=== PATIENT | female | born 1945 | race Caucasian/White ===

== ENCOUNTER 2017-05-09 08:25 | Day surgery (SDC) ==
[2017-05-09] MEDS ORDERED: LIDOCAINE 1% 20 ML MDV ID STA (09:45)
[2017-05-09] MEDS ORDERED: DIPRIVAN 20 ML VIAL IVP ONE (10:35)
[2017-05-09] MEDS ORDERED: VERSED ONE (10:35)
[2017-05-09 15:16] VITALS: BP 112/67
--- NOTE | 2017-05-10 09:20 | OP ---
PROCEDURE: COLONOSCOPY TO THE CECUM. ENDOSCOPIST: Freddy PATEL M.D. INDICATION: HISTORY OF POLYPS. INSTRUMENT: [employer]-[facility]. MEDICATION: PER ANESTHESIA. PROCEDURE: The patient was positioned for colonoscopy. The digital rectal exam was negative. The colonoscope was inserted through the anus and advanced to the cecum. The cecum was identified using the ileocecal valve and the appendiceal orifice as landmarks. The scope was slowly withdrawn through a tortuous colon. No evidence for inflammatory change, polyp or mass. She does have hemorrhoids on retroflex exam. No other abnormalities are noted. Withdrawal time 12 minutes. PLAN: 1. Repeat her exam in 5 years. CC: DR. PHILIPPE MARCIAL
== END 2017-05-09 12:10 | disposition home or self-care (01) ==
LOC: SURG 08:25
PROVIDERS: ATTEND Internal Medicine Gastroenterology
DX: Z09 Encounter for follow-up examination after completed treatment for conditions other than malignant neoplasm (principal); Z86.010 Personal history of colon polyps; K56.2 Volvulus; K64.9 Unspecified hemorrhoids

== ENCOUNTER 2017-08-23 13:40 | Outpatient (CLI) ==
--- NOTE | 2017-08-23 14:26 | US ---
EXAM: Bilateral lower extremity venous doppler. HISTORY: Bilateral lower extremity pain and swelling. COMPARISON: None available. TECHNIQUE: Multiple grayscale and color doppler images were obtained. FINDINGS: There is normal flow, compressibility and augmentation of flow within the right and left c ommon femoral, greater saphenous, profunda, femoral, popliteal, posterior tibial, anterior tibial and peroneal veins. IMPRESSION: No evidence for right or left lower extremity deep vein thrombosis at the levels examined.
== END 2017-08-23 13:41 | disposition home or self-care (01) ==
LOC: RAD 13:40
PROVIDERS: ATTEND Family Medicine
DX: R60.0 Localized edema (principal); I87.2 Venous insufficiency (chronic) (peripheral)

== ENCOUNTER 2017-09-06 06:29 | Outpatient (CLI) ==
--- NOTE | 2017-09-06 10:07 | ECHO2D ---
Date of Exam: 09/06/17 Ordering Physician: DR. JONAS PAEZ Room #: OP Reason for Echo: EDEMA, DYSPNEA, SOB M-Mode Normal Adult Results LV Dimensions Normal Adult Results AoV Opening excursions >1.6 >1.6 LVEDD-base- 3.5-5.8 3.6 Ao root dimensions 2.0-3.7 3.3 LVESD-base- 3.1-4.6 L. Atrium dimensions 1.9-3.8 3.1 Post. Wall thickness 0.8-1.1 1.1 IV septum (thickness) 0.7-1.2 1.1 Post. Wall excursion 0.72-1.3 NORMAL Septal motion NORMAL Systolic motion R. Ventricular cavity 1.5-2.0 NORMAL LVEF 60% 59% Paradoxical septal wall motion NORMAL 2-D : 2-D M Mode Echocardiogram was performed using apical four chamber and left parasternal long and short axis views. Mitral Valve Prolapse noted long parasternal long axis and apical four chamber view. Tricuspid and Aortic valves appear to be normal. Contractility of the left ventricle seems to be normal, so is the cavity size. Left atrial cavity size and aortic root appear to be normal. There is no pericardial effusion. There is no thrombus noted in the left ventricular or left aortic cavity. M-MODE: MV: MITRAL VALVE PROLAPSE NOTED AV: NORMAL TV: NORMAL PV: CHAMBER SIZE: NORMAL WALL MOTION: NORMAL PERICARDIUM: NORMAL INTERPRETATION: 1. MITRAL VALVE PROLAPSE LATE SYSTOLIC 2. NORMAL LEFT VENTRICLE CONTRACTILITY 3. NORMAL LEFT VENTRICLE SIZE MTDD
== END 2017-09-06 06:30 | disposition home or self-care (01) ==
LOC: CAR 06:29
PROVIDERS: ATTEND Family Medicine
DX: R10.13 Epigastric pain (principal); R60.9 Edema, unspecified; R06.02 Shortness of breath

== ENCOUNTER 2018-11-17 12:43 | Outpatient (CLI) | END 2018-11-17 12:44 | disposition home or self-care (01) | LOC: RHC-LAB 12:43 → FCC-LAB 12:44 | PROVIDERS: ATTEND Family Medicine | DX: N39.41 Urge incontinence (principal); R39.89 Other symptoms and signs involving the genitourinary system; K64.4 Residual hemorrhoidal skin tags | CPT/HCPCS: 81001; 82272; 87086 ==